=== PATIENT | female | born 1990 | race Caucasian/White ===

== ENCOUNTER 2020-10-26 20:03 | Emergency (ER) | payer OTHER ==
[~2020-10-26] VITALS: Ht 160 cm; Wt 101.6 kg
[2020-10-26 20:09] VITALS: BP 122/61
[2020-10-26] MEDS ORDERED: KETOROLAC 60 MG/2 ML VIAL IM ONE (20:35)
--- NOTE | 2020-10-26 20:45 | NUR ---
Patient discharged with v/s stable. Written and verbal after care instructions given and explained BY RADAMES QUINTERO. Patient alert, oriented and verbalized understanding of instructions. Ambulatory with steady gait. All questions addressed prior to discharge BY RADAMES QUINTERO. ID band removed. Patient advised to follow up with PMD. Rx of NAPROSYN given. Patient educated on indication of medication including possible reaction and side effects. Opportunity to ask questions provided and answered.
--- NOTE | 2020-10-26 20:45 | NUR ---
PATIENT RETURNED FROM XRAY VIA W/C.
[2020-10-26] MEDS ORDERED: NAPR-54 PO (21:14)
== END 2020-10-26 20:45 | disposition home or self-care (01) ==
LOC: MED 20:03
DX: S13.4XXA Sprain of ligaments of cervical spine, initial encounter (principal); V49.9XXA Car occupant (driver) (passenger) injured in unspecified traffic accident, initial encounter; Y93.89 Activity, other specified; Y92.89 Other specified places as the place of occurrence of the external cause; Y99.8 Other external cause status
CPT/HCPCS: 72050; 96372; 99283

== ENCOUNTER 2021-03-22 00:40 | Emergency (ER) | payer OTHER ==
[~2021-03-22] VITALS: Ht 154.9 cm; Wt 97.5 kg
[~2021-03-22 00:40] MED LIST: NAPR-54 PO
[2021-03-22 01:18] VITALS: BP 115/75
--- NOTE | 2021-03-22 01:20 | NUR ---
ERMD IN TRIAGE FOR EVAL.
--- NOTE | 2021-03-22 01:24 | NUR ---
PT AMBULATED TO RESTROOM AND BACK TO LOBBY.
[2021-03-22] MEDS ORDERED: KETOROLAC 30 MG/ML VIAL IVP ONE (01:35)
[2021-03-22] MEDS ORDERED: NACL 0.9% 1,000 ML IV SCH (01:35)
[2021-03-22] MEDS ORDERED: ONDANSETRON 4 MG/2 ML VIAL IVP ONE (01:35)
[2021-03-22] MEDS ORDERED: MORPHINE SULFATE 2 MG/ML SYR IVP ONE (01:35)
[2021-03-22 01:51] LABS: APPEARANCE,URINE SL CLOUDY (CLEAR); BILIRUBIN,URINE NEGATIVE (NEGATIVE); BLOOD, URINE 3+ (NEGATIVE); COLOR,URINE YELLOW (YELLOW); LEUKOCYTE ESTERASE ,URINE NEGATIVE (NEGATIVE); NITRITE, URINE NEGATIVE (NEGATIVE); UGLUCOSE NEGATIVE (NEGATIVE)
[2021-03-22 01:52] LABS: BASOPHILS % (AUTO) 0.3 % (0.0-2.0); EOSINOPHILS # (AUTO) 0.2 K/uL (0-0.4); EOSINOPHILS % (AUTO) 1.7 % (0.0-4.0); HEMATOCRIT 41.3 % (36-48); HEMOGLOBIN 13.2 g/dL (12.0-16.0); LYMPHOCYTES # (AUTO) 1.9 K/uL (2.5-16.5); LYMPHOCYTES % (AUTO) 15.3 % (20.5-51.1); MEAN CORPUSCULAR HEMOGLOBIN 25 pg (27-31); MEAN CORPUSCULAR HGB CONC 32 g/dL (33-37); MEAN CORPUSCULAR VOLUME 77.9 fL (80-94); MONOCYTES # (AUTO) 0.7 K/uL (0.8-1.0); MONOCYTES % (AUTO) 5.7 % (1.7-9.3); NEUTROPHILS # (AUTO) 9.6 K/uL (1.8-7.7); PLATELET COUNT (AUTO) 289 K/uL (140-450); RED BLOOD CELL COUNT(AUTO) 5.31 MIL/uL (4.20-5.40); RED CELL DISTRIBUTION WIDTH 16.6 % (11.6-13.7); WHITE BLOOD COUNT (AUTO) 12.4 K/uL (4.8-10.8)
[2021-03-22 02:02] LABS: RBC,URINE TOO NUMEROUS TO COUN /HPF (0-5); WBC,URINE 0-5 /HPF (0-5)
[2021-03-22 02:04] LABS: ALBUMIN 3.7 g/dL (3.4-5.0); ANION GAP 13.3 (8-16); CARBON DIOXIDE 24.6 mmol/L (21-32); CREATININE 0.8 mg/dL (0.6-1.3); POTASSIUM 3.9 mmol/L (3.5-5.1); TOTAL BILIRUBIN 0.4 mg/dL (0.0-1.0)
--- NOTE | 2021-03-22 02:24 | NUR ---
PT AMBULATED TO BED 12.
--- NOTE | 2021-03-22 02:28 | NUR ---
Patient c/o flank pain starting 2244 today. Patient took ibuprofen but is unrelieved. Patient complains of sharp pain on the Left lower back that comes and goes with a score 8/10. patient reports it is the same pain she has had before when she had a kidney [id number]. VSS. PMH: kidney stones NKA
[2021-03-22] MEDS ORDERED: ONDANSETRON 4 MG/2 ML VIAL ONE ×2 (02:54→02:57)
[2021-03-22] MEDS ORDERED: KETOROLAC 30 MG/ML VIAL ONE (02:54)
--- NOTE | 2021-03-22 03:40 | NUR ---
patient to CT
--- NOTE | 2021-03-22 03:46 | NUR ---
patient back from CT via [facility]
--- NOTE | 2021-03-22 05:01 | NUR ---
Patient appears to be resting comfortably in bed. Vital Signs within normal limits. Respirations even and unlabored. Safety measures in place. Will continue to monitor.
[2021-03-22] MEDS ORDERED: cefTRIAXone 1,000 MG in LIDOCAINE MPF 1% 2.1 ML IM ONE (05:50)
[2021-03-22] MEDS ORDERED: KETOROLAC 15 MG/ML VIAL IVP ONE (05:50)
[2021-03-22] MEDS ORDERED: LIDOCAINE MPF 1% 5 ML ONE (06:03)
[2021-03-22] MEDS ORDERED: cefTRIAXone 1,000 MG VIAL ONE (06:03)
[2021-03-22] MEDS ORDERED: KETO10TA2 PO (06:32)
[2021-03-22] MEDS ORDERED: CEPH-588 PO (06:32)
[2021-03-22] MEDS ORDERED: TAMS0.4C96 PO (06:32)
--- NOTE | 2021-03-22 06:50 | NUR ---
IV removed, catheter intact and site benign. Applied folded 4x4 gauze and tape to stop bleeding.
[2021-03-22 06:59] VITALS: BP 119/60
--- NOTE | 2021-03-22 06:59 | NUR ---
Patient discharged with v/s stable. Written and verbal after care instructions given and explained. Patient alert, oriented and verbalized understanding of instructions. Ambulatory with steady gait. All questions addressed prior to discharge. ID band removed. Patient advised to follow up with PMD. Rx of Keflex, Ketorolac Tromethamine, Flomax given. Patient educated on indication of medication including possible reaction and side effects. Opportunity to ask questions provided and answered.
== END 2021-03-22 06:59 | disposition home or self-care (01) ==
LOC: MED 00:40
DX: N12 Tubulo-interstitial nephritis, not specified as acute or chronic (principal); N13.0 Hydronephrosis with ureteropelvic junction obstruction
CPT/HCPCS: 36415; 74176; 80053; 81001; 83690; 84703; 85025; 87086; 96372; 96374; 96375; 96376; 99285; J0696; J1885; J2001; J2405; J7030

== ENCOUNTER 2023-06-06 01:33 | Emergency (ER) | payer OTHER ==
[~2023-06-06] VITALS: Ht 157.5 cm; Wt 94.8 kg
[~2023-06-06 01:33] MED LIST changes: +CEPH-588 PO; +KETO10TA2 PO; +TAMS0.4C96 PO
[2023-06-06 01:57] VITALS: BP 123/83; PULSE 72; RESP 16; TEMP 97.4; O2SAT 97
== END 2023-06-06 02:30 | disposition left against medical advice (07) ==
LOC: MED 01:33
DX: H92.01 Otalgia, right ear (principal); Z53.21 Procedure and treatment not carried out due to patient leaving prior to being seen by health care provider
CPT/HCPCS: 99281

== ENCOUNTER 2023-06-09 23:53 | Emergency (ER) | payer OTHER ==
[~2023-06-09] VITALS: Ht 157.5 cm; Wt 94.8 kg
[2023-06-10 00:05] VITALS: BP 131/88; PULSE 68; RESP 17; TEMP 97.9; O2SAT 98
[2023-06-10] MEDS ORDERED: ACET-10509 PO (04:10)
[2023-06-10] MEDS ORDERED: OFLO10SO16 LEFT EAR (04:10)
[2023-06-10 04:24] VITALS: BP 131/88; PULSE 68; RESP 17; TEMP 97.9; O2SAT 98
== END 2023-06-10 04:24 | disposition home or self-care (01) ==
LOC: MED 23:53
DX: H66.91 Otitis media, unspecified, right ear (principal); H72.91 Unspecified perforation of tympanic membrane, right ear; Z79.899 Other long term (current) drug therapy
CPT/HCPCS: 99282